=== PATIENT | female | born 1975 | race Hispanic/Latino ===

== ENCOUNTER 2021-11-04 12:31 | Emergency (ER) | payer OTHER ==
[2021-11-04] MEDS ORDERED: FENTANYL CITR 100 MCG/2 ML ONE ×2 (13:15→13:16)
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
[2021-11-04 14:47] VITALS: BP 160/82; TEMP 98.9; O2SAT 100
--- NOTE | 2021-11-06 09:37 | EKG ---
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
== END 2021-11-04 14:43 | disposition home or self-care (01) ==
LOC: ER 12:31
DX: R07.1 Chest pain on breathing (principal); R07.89 Other chest pain; V49.40XA Driver injured in collision with unspecified motor vehicles in traffic accident, initial encounter; E11.9 Type 2 diabetes mellitus without complications; I10 Essential (primary) hypertension
CPT/HCPCS: 93005; 82565; 70450; 72125; 71260; 74177; 96374; 99284; Q9967; J3010 ×2